=== PATIENT | male | born 2005 | race Two or more races ===

== ENCOUNTER 2023-09-21 20:04 | Emergency (ER) | payer OTHER ==
[2023-09-21] MEDS ORDERED: Acetaminophen 500 MG TAB ONE (20:39)
[2023-09-21 21:27] LABS: SARS-CoV-2 NAA Rapid Test Not Detected (NotDetected)
== END 2023-09-21 21:37 | disposition home or self-care (01) ==
LOC: CSHERS 20:04
DX: J10.1 Influenza due to other identified influenza virus with other respiratory manifestations (principal)
CPT/HCPCS: 99283